=== PATIENT | male | born 1990 | race Caucasian/White ===

== ENCOUNTER 2017-02-01 15:37 | Emergency (ER) | payer MEDICAID, OTHER ==
[2017-02-01 16:12] VITALS: TEMP 98.5; O2SAT 99; BMI 19.5
[2017-02-01] MEDS ORDERED: Albuterol-Ipratrop 3 mg / 0.5 (3 ml) UD IH STA (16:57)
--- NOTE | 2017-02-01 17:02 | ED PDOC ---
Arrival/HPI - General Chief Complaint: Shortness Of Breath Time Seen by Provider: 02/01/17 15:57 Historian: Patient, Parent - History of Present Illness Narrative History of Present Illness (Text): 02/01/17 17:02 26 yo M with no significant medical history, active 1ppd smoker x 11 years presents to ED with 3 day h/o SOB that initially woke him up from sleep 3 days ago. Patient states he has been intermittently SOB, dyspnic on exertion x 3 days and has been vomiting x 2 days. Patient admits to dizziness and mild holocephalic headache while standing from seated position, nonbloody emesis x 2 days, able to tolerate minimal PO intake since yesterday. Patient admits to upper chest pain reproducible on palpation, CP with deep inspiration. Denies fevers, chills, diarrhea, new rashes. Mom and brother had bronchitis 1-2 weeks ago, brother was treated with abx. Past Medical History - Travel History Have you recently traveled outside [place] w/in the past 3 mons?: No - Infectious Disease Hx of Infectious Diseases: None - Psychiatric Hx Psychophysiologic Disorder: No Hx Anxiety: No Hx Bipolar Disorder: No Hx Depression: No Hx Emotional Abuse: No Hx Hallucinations: No Hx Panic Disorder: No Hx Post Traumatic Stress Disorder: No Hx Psychosis: No Hx Physical Abuse: No Hx Schizophrenia: No Hx Sexual Abuse: No Hx Substance Use: No - Anesthesia Hx Anesthesia: No Hx Anesthesia Reactions: No Hx Malignant Hyperthermia: No Family/Social History Family/Social History: Diabetes, Neoplasm/Cancer (colon cancer in father and paternal grandfather; DM on materanl and paternal side) Smoking Status: Heavy Smoker > 10 Cigarettes Daily Frequency of alcohol use: Socially Hx Substance Use: No Allergies/Home Meds Allergies/Adverse Reactions: Allergies No Known Allergies Allergy (Verified 08/21/15 14:01) Review of Systems - Review of Systems Constitutional: Fatigue Eyes: absent: Vision Changes ENT: absent: Hearing Changes Respiratory: SOB Cardiovascular: Chest Pain (upper chest), Calf Pain (L>R), OLIVO. absent: Palpitations, Edema, Orthopnea, Syncope Gastrointestinal: Normal, Nausea, Vomiting, Food Intolerance (x 1 day). absent : Constipation, Diarrhea, Hematochezia, Hematemesis Genitourinary Male: Normal. absent: Dysuria Musculoskeletal: Myalgias (BL legs) Skin: absent: Rash, Skin Lesions Neurological: Dizziness Psychiatric: Normal Physical Exam Vital Signs Temp Pulse Resp BP Pulse Ox 02/01/17 17:15 89 18 118/79 99 02/01/17 17:00 18 98 02/01/17 16:06 98.5 F 98 H 20 121/83 99 Temperature: Afebrile Blood Pressure: Normal Pulse: Tachycardic Respiratory Rate: Normal Appearance: Positive for: Well-Appearing, Non-Toxic, Comfortable Mental Status: Positive for: Alert and Oriented X 3 - Systems Exam Head: Present: Atraumatic, Normocephalic Pupils: Present: PERRL Extroacular Muscles: Present: EOMI Conjunctiva: Present: Normal Ears: Present: Normal Mouth: Present: Moist Mucous Membranes Neck: Present: Normal Range of Motion. No: Meningeal Signs, MIDLINE TENDERNESS , Paraspinal Tenderness, JVD, Lymphadenopathy Respiratory/Chest: Present: Clear to Auscultation, Good Air Exchange. No: Respiratory Distress, Accessory Muscle Use, Wheezes, Rales, Rhonchi Cardiovascular: Present: Normal S1, S2, Tachycardic (90s). No: Murmurs Abdomen: Present: Normal Bowel Sounds. No: Tenderness, Distention, Peritoneal Signs, McBurney's Point Tender Breast/Axillary: Present: Tender to Palpation (upper chest) Back: No: Normal Inspection, CVA Tenderness Upper Extremity: Present: Normal Inspection, NORMAL PULSES, Capillary Refill < 2s. No: Cyanosis, Edema Lower Extremity: Present: Normal Inspection, NORMAL PULSES, Capillary Refill < 2 s. No: Edema, CALF TENDERNESS Neurological: Present: GCS=15, CN II-XII Intact, Speech Normal Medical Decision Making ED Course and Treatment: 02/01/17 18:36 Radiology read BL LE dupplex negative for DVT BL 02/01/17 19:02 Patient reexamined. Feeling better, no significant SOB. Instructed to followup with PMD in 1-2 days. Parents at bedside express understanding and are in agreement. Re-evaluation Time: 18:54 Reassessment Condition: Re-examined - Lab Interpretations Lab Results: 02/01/17 17:41 02/01/17 17:41 Lab Results 02/01/17 17:41: WBC 3.5 L, RBC 5.21, Hgb 16.0, Hct 44.3, MCV 85.0, MCH 30.7, MCHC 36.1, RDW 12.2, Plt Count 179, MPV 10.6, Gran % 46.9 L, Lymph % (Auto) 41.1 H, Price % (Auto) 10.6 H, Eos % (Auto) 1.1 L, Baso % (Auto) 0.3, Gran # 1.63 , Lymph # 1.4, Price # 0.4, Eos # 0.0, Baso # 0.01, PT 11.0, INR 1.02, D-Dimer, Quantitative 0.19, Sodium 139, Potassium 3.5 L, Chloride 105, Carbon Dioxide 26 , Anion Gap 12, BUN 10, Creatinine 0.8, Est GFR ( Amer) > 60, Est GFR ( Non-Af Amer) > 60, Random Glucose 105, Calcium 8.9, Magnesium 2.1, Total Bilirubin 0.5, AST 20, ALT 27, Alkaline Phosphatase 59, Total Creatine Kinase 114, Troponin I < 0.01, Total Protein 7.2, Albumin 4.2, Globulin 3.0, Albumin/ Globulin Ratio 1.4 I have reviewed the lab results: Yes Interpretation: All labs normal - RAD Interpretation Radiology Orders: 02/01/17 16:56 CHEST TWO VIEWS (PA/LAT) [RAD] Stat DUPLEX LOWER EXTRM VEIN BILAT [US] Stat - EKG Interpretation EKG Interpretation (Text): 02/01/17 17:47 Sinus tachycardia 97bpm, normal axis, no ST-T wave changes Interpreted by ED Physician: Yes Type: 12 lead EKG Comparison: No previous EKG avail. - Medication Orders Current Medication Orders: Discontinued Medications Albuterol/Ipratropium (Duoneb 3 Mg/0.5 Mg (3 Ml) Ud) 3 ml IH STAT STA Stop: 02/01/17 16:58 Last Admin: 02/01/17 17:44 Dose: 3 ML Disposition/Present on Arrival - Present on Arrival Any Indicators Present on Arrival: No History of DVT/PE: No History of Uncontrolled Diabetes: No Urinary Catheter: No History of Decub. Ulcer: No History Surgical Site Infection Following: None - Disposition Have Diagnosis and Disposition been Completed?: Yes Diagnosis: Shortness of breath, Flu-like symptoms Disposition: HOME/ ROUTINE Disposition Time: 19:08 Patient Plan: Discharge Patient Problems: Current Active Problems Problem Status Diagnosed Flu-like symptoms Acute Shortness of breath Acute Condition: IMPROVED Additional Instructions: Counseled immediate smoking cessation. Prescriptions: Albuterol HFA [Ventolin HFA 90 mcg/actuation (8 g)] 2 puff IH [id number] PRN #1 puff PRN Reason: Shortness Of Breath Naproxen 500 mg PO BID PRN #30 tab PRN Reason: Pain, Moderate (4-7) Ondansetron ODT [Zofran ODT] 4 mg PO BID PRN #30 odt PRN Reason: nausea
[2017-02-01 17:16] VITALS: RESP 18
[2017-02-01 18:11] LABS: ADD MANUAL DIFF? NO
[2017-02-01 18:16] LABS: BASO # 0.01 K/mm3 (0.0-2.0); BASO % 0.3 % (0.0-3.0); EOS % 1.1 % (1.5-5.0); GRAN # 1.63 (1.4-6.5); GRAN % 46.9 % (50.0-68.0); HEMATOCRIT 44.3 % (42.0-52.0); LYMPH # 1.4 (1.2-3.4); LYMPH % 41.1 % (22.0-35.0); MEAN CORPUSCULAR HEMOGLOBIN 30.7 pg (25.0-35.0); MEAN CORPUSCULAR HGB CONC 36.1 g/dl (31.0-37.0); MEAN PLATELET VOLUME 10.6 fl (7.0-11.0); MONO # 0.4 (0.1-0.6); MONO % 10.6 % (1.0-6.0); PLATELET COUNT 179 10^3/uL (120.0-450.0); RED CELL DISTRIBUTION WIDTH 12.2 % (11.5-14.5); WHITE BLOOD COUNT 3.5 10^3/ul (4.5-11.0)
[2017-02-01 18:26] LABS: ALB/GLOB RATIO 1.4 (1.1-1.8); ALKALINE PHOSPHATASE 59 U/L (38-133); ALT/SGPT 27 U/L (7-56); AST/SGOT 20 U/L (15-59); BILIRUBIN,TOTAL 0.5 mg/dL (0.2-1.3); BLOOD UREA NITROGEN 10 mg/dL (7-21); CALCIUM 8.9 mg/dL (8.4-10.5); CARBON DIOXIDE 26 mmol/L (21-33); CHLORIDE 105 mmol/L (98-107); GFR AFRICAN-AMERICAN > 60; GLUCOSE,RANDOM 105 mg/dL (70-110); MAGNESIUM 2.1 mg/dL (1.7-2.2); POTASSIUM 3.5 mmol/L (3.6-5.0); SODIUM 139 mmol/L (132-148); TOTAL PROTEIN 7.2 g/dL (5.8-8.3)
[2017-02-01 18:32] LABS: INR 1.02 (0.93-1.08)
[2017-02-01 18:36] LABS: D DIMER 0.19 mg/L FEU (0-0.50)
[2017-02-01 18:37] LABS: TROPONIN I < 0.01 ng/mL
[2017-02-01 19:10] VITALS: BP 120/81; PULSE 80
--- NOTE | 2017-02-02 07:50 | RAD ---
HISTORY: SOB COMPARISON: No prior. TECHNIQUE: Chest PA and lateral FINDINGS: LUNGS: No consolidation or infiltrate. Bilateral hyperaeration PLEURA: No significant pleural effusion identified. No pneumothorax apparent. CARDIOVASCULAR: Normal. OSSEOUS STRUCTURES: No significant abnormalities. VISUALIZED UPPER ABDOMEN: Normal. OTHER FINDINGS: None. IMPRESSION: No infiltrate or atelectasis. Bilateral lung hyperaeration - voluntary and/or consistent with asthma. Correlate clinically
--- NOTE | 2017-02-02 09:05 | US ---
HISTORY: Leg pain and swelling. Evaluate for DVT PHYSICIAN(S): Ammon Swan MD. TECHNIQUE: Duplex sonography and color-flow Doppler with graded compression were used to evaluate the deep venous systems of both lower extremities. FINDINGS: The visualized deep venous systems of both lower extremities are sonographically normal and compressible. Normal wave forms and augmentation are seen. There is no sonographic evidence for deep venous thrombosis in the visualized segments of both lower extremities. IMPRESSION: No sonographic evidence for deep venous thrombosis in the visualized segments of both lower extremities.
--- NOTE | 2017-02-02 15:37 | CARD ---
APPROVED REPORT EKG Measurement Heart [id number] <Conclusion> Normal sinus rhythm Normal ECG
== END 2017-02-01 19:20 | disposition home or self-care (01) ==
LOC: ED 15:37
DX: J11.1 Influenza due to unidentified influenza virus with other respiratory manifestations (principal); R06.02 Shortness of breath; F17.210 Nicotine dependence, cigarettes, uncomplicated